=== PATIENT | male | born 1970 | race Caucasian/White ===

== ENCOUNTER 2019-06-23 16:20 | Emergency (ER) | payer OTHER ==
[~2019-06-23] VITALS: Ht 182.8 cm; Wt 65.8 kg
[~2019-06-23 16:20] MED LIST: ALBUTEROL 3 ML 33 ML INH; ANUSOL-HC25 MG R; CYCLOBENZAPRINE10 MG PO; MIRALAX POWDER17 G1 PO; NAPROSYN500 MG PO; NICODERM C21 MG/24 H TD; NKHM; PANTOPRAZOLE SO40 MG PO
== END 2019-06-23 16:31 | disposition home or self-care (01) ==
LOC: ED 16:20
DX: S62.327A Displaced fracture of shaft of fifth metacarpal bone, left hand, initial encounter for closed fracture (principal); F10.920 Alcohol use, unspecified with intoxication, uncomplicated; Z79.899 Other long term (current) drug therapy; W22.09XA Striking against other stationary object, initial encounter; Y93.89 Activity, other specified; Y92.89 Other specified places as the place of occurrence of the external cause; Y99.8 Other external cause status

== ENCOUNTER 2021-03-29 04:28 | Emergency (ER) | payer OTHER ==
[~2021-03-29] VITALS: Ht 182.8 cm; Wt 67.1 kg
[2021-03-29 04:44] LABS: MEAN CELL VOLUME 91.7 fl (80.0-94.0); MEAN CORPUSCULAR HGB CONC 33.8 g/dl (33.0-37.0); MEAN PLATELET VOLUME 10.2 fl (9.6-12.3); PLATELET COUNT AUTOMATED 292 10*3/uL (130-400); RED BLOOD COUNT 4.58 10*6/uL (4.50-5.90); RED CELL DISTRI WIDTH 13.2 % (0-14.5); WHITE BLOOD COUNT 11.8 10*3/uL (4.8-10.8)
[2021-03-29 05:00] LABS: BASOPHILS 1 % (0-1); TOTAL CELLS COUNTED 100 #CELLS
[2021-03-29 05:01] LABS: ALBUMIN 3.1 gm/dl (3.1-4.5); ALKALINE PHOSPHATASE 65 U/L (45-117); BUN 5 mg/dl (7-24); CHLORIDE 102 mmol/L (98-107); PLATELET SUFFICIENCY NORMAL (NORMAL); POTASSIUM 4.4 mmol/L (3.5-5.1); SGOT/AST 21 IU/L (3-35); SGPT/ALT 21 U/L (12-78); SODIUM 135 mmol/L (136-145); TOTAL PROTEIN 7.3 gm/dL (6.4-8.2)
[2021-03-29 05:02] LABS: TROPONIN I < 0.015 ng/ml (<0.045)
[2021-03-29 05:03] LABS: INTERNATIONAL NORM RATIO 0.9 (2.0-3.5)
[2021-03-29] MEDS ORDERED: NAPROXEN250 MG PO (05:32)
== END 2021-03-29 05:58 | disposition home or self-care (01) ==
LOC: ED 04:28
PROVIDERS: Internal Medicine
DX: R07.89 Other chest pain (principal); Z79.899 Other long term (current) drug therapy

== ENCOUNTER → 2021-08-24 | Outpatient (CLI) | payer OTHER ==
[~2021-08-24] MED LIST changes: +NAPROXEN250 MG PO
== END | disposition home or self-care (01) ==
LOC: COVID19 15:58
PROVIDERS: ATTEND Internal Medicine
DX: Z11.52 Encounter for screening for COVID-19 (principal)

== ENCOUNTER 2024-01-23 23:10 | Emergency (ER) | payer SELFPAY ==
[~2024-01-23] VITALS: Ht 185.4 cm; Wt 61.2 kg
[2024-01-23] MEDS ORDERED: SYMB160 INH (23:22)
[2024-01-23] MEDS ORDERED: COZAAR25 M1 PO (23:22)
[2024-01-23 23:40] LABS: BASO # 0.1 10*3/uL (0.0-0.1); BASO % 1.5 % (0.0-1.0); EOS # 0.1 10*3/uL (0.0-0.4); EOS % 2.2 % (1.0-4.0); HEMATOCRIT 42.8 % (42.0-52.0); LYMPH # 1.9 10*3/uL (1.3-4.4); LYMPH % 31.8 % (27.0-41.0); MEAN CELL VOLUME 93.2 fl (80.0-94.0); MEAN CORPUSCULAR HGB 30.3 pg (27.0-31.0); MEAN CORPUSCULAR HGB CONC 32.5 g/dl (33.0-37.0); MEAN PLATELET VOLUME 10.2 fl (9.6-12.3); MONO # 0.7 10*3/uL (0.1-1.0); MONO % 12.2 % (3.0-9.0); NEUT % 52.1 % (47.0-73.0); PLATELET COUNT AUTOMATED 279 10*3/uL (130-400); RED BLOOD COUNT 4.59 10*6/uL (4.50-5.90); RED CELL DISTRI WIDTH 13.3 % (0-14.5); WHITE BLOOD COUNT 5.8 10*3/uL (4.8-10.8)
[2024-01-23 23:51] LABS: ACT PARTIAL THROMBO TIME 32.4 SECONDS (20.0-32.1)
[2024-01-24 00:02] LABS: ALKALINE PHOSPHATASE 54 U/L (46-116); BUN < 5 mg/dl (9-23); CHLORIDE 100 mmol/L (98-107); ETHYL ALCOHOL 163.7 mg/dl (<3); LIPASE 85 U/L (12-53); POTASSIUM 2.9 mmol/L (3.4-5.1); SGPT/ALT 25 U/L (5-49); TOTAL PROTEIN 6.9 gm/dL (6.0-8.0)
[2024-01-24 01:47] LABS: BILIRUBIN Negative (Negative); BLOOD Negative (Negative); CLARITY Clear (Clear); COLOR Yellow (Yellow); GLUCOSE Negative (Negative); KETONE Negative (Negative); LEUKO ESTERASE Negative (Negative); NITRITE Negative (Negative); PH 5.5 (4.5-8.0); SPECIFIC GRAVITY <= 1.005 (1.001-1.030); UROBILINOGEN 0.2 E.U./dl (0.0-1.0)
[2024-01-24 01:55] LABS: URINE AMPHETAMINES Negative (1000ng/ml); URINE BARBITURATES Negative (200ng/ml); URINE BENZODIAZEPINES Negative (200ng/ml); URINE CANNABINOIDS (THC) Positive (50ng/ml); URINE COCAINE Negative (300ng/ml); URINE METHADONE Negative (300ng/ml); URINE OPIATES Negative (300ng/ml); URINE PHENCYCLIDINE Negative (25ng/ml)
[2024-01-24 02:01] LABS: RBC 0-2 rbc/hpf (0-2); WBC 0-2 wbc/hpf (0-5)
== END 2024-01-24 06:16 | disposition home or self-care (01) ==
LOC: ED 23:10
PROVIDERS: Internal Medicine
DX: F10.129 Alcohol abuse with intoxication, unspecified (principal); R07.89 Other chest pain; J44.9 Chronic obstructive pulmonary disease, unspecified; K21.9 Gastro-esophageal reflux disease without esophagitis; Z87.891 Personal history of nicotine dependence; Z79.899 Other long term (current) drug therapy; Y90.6 Blood alcohol level of 120-199 mg/100 ml

== ENCOUNTER → 2025-06-09 | Outpatient (CLI) | payer MEDICAID ==
[~2025-06-09] MED LIST changes: +COZAAR25 M1 PO; +MUCUS RELIEF E600 MG PO; +NICODERM CQ1 EAC2 T; +OMNICEF300 MG PO; +PREDNISONE10 MG PO; +SYMB160 INH; +TAB-A-VITE TA400 MCG PO; +VENT7GM INH; +ZITHROMAX500 MG PO
== END | disposition home or self-care (01) ==
LOC: CT 12:19
PROVIDERS: ATTEND Internal Medicine Critical Care Medicine
DX: J44.9 Chronic obstructive pulmonary disease, unspecified (principal); R91.8 Other nonspecific abnormal finding of lung field; I25.10 Atherosclerotic heart disease of native coronary artery without angina pectoris